=== PATIENT | female | born 1960 | race Caucasian/White ===

== ENCOUNTER 2019-01-14 07:19 | Day surgery (SDC) | payer BC ==
[~2019-01-14 07:19] MED LIST: Lactated Ringers 1,000 ML IV SCH; Lidocaine 1%/Sod Bicarbonate in NS 8.4% 1 ML Syringe IDERM PRN; Sodium Chloride 0.9% 10 ML Syringe FLUSH PRN
[2019-01-14] MEDS ORDERED: Lidocaine 1% 4 ML ONE (07:45)
[2019-01-14] MEDS ORDERED: Propofol 200 MG/20 ML SDV ONE (07:46)
[2019-01-14] MEDS ORDERED: Midazolam 1 MG/ML 2 ML SDV ONE (07:46)
[2019-01-14] MEDS ORDERED: fentaNYL 100 MCG/2 ML SDV ONE (07:46)
[2019-01-14] MEDS ORDERED: Ondansetron 4 MG/2 ML SDV ONE (07:48)
--- NOTE | 2019-01-14 08:48 | PCM.PREANE ---
Preanesthetic Assessment - Procedure Proposed Procedure: D and C- hysteroscopy polypectomy - Anesthesia/Transfusion/Family Hx Anesthesia History: Prior Anesthesia Without Reaction Family History of Anesthesia Reaction: No Transfusion History: No Prior Transfusion(s) - Review of Systems General: No Symptoms Pulmonary: No Symptoms Cardiovascular: No Symptoms Gastrointestinal: No Symptoms Neurological: No Symptoms Other: Reports: None - Physical Assessment NPO Status Date: 01/13/19 NPO Status Time: 21:30 (sip of water at 2330) Vital Signs: Last Vital Signs Temp 98.4 F 01/14/19 07:55 Pulse 72 01/14/19 07:55 Resp 16 01/14/19 07:55 BP 134/60 01/14/19 07:55 Pulse Ox 99 01/14/19 07:55 Height: 5 ft 9 in Weight: 70.4 kg ASA Class: 1 Mental Status: Alert & Oriented x3 Airway Class: Mallampati = 1 Dentition: Reports: Normal Dentition (caps- not loose) Thyro-Mental Finger Breadths: 3 Mouth Opening Finger Breadths: 3 ROM/Head Extension: Full Lungs: Clear to Auscultation, Normal Respiratory Effort Cardiovascular: Regular Rate, Regular Rhythm - Lab Values: Laboratory Last Values Urine HCG, Qual Negative (NEGATIVE) 01/14/19 07:34 - Allergies Allergies/Adverse Reactions: Allergies Allergy/AdvReac Type Severity Reaction Status Date / Time codeine Allergy Nausea and Verified 01/14/19 07:51 Vomiting sulfamethoxazole Allergy Rash Verified 01/14/19 07:51 [From Bactrim] trimethoprim [From Bactrim] Allergy Rash Verified 01/14/19 07:51 - Blood Blood Available: No - Acknowledgements Anesthesia Type Planned: General Anesthesia Pt an Appropriate Candidate for the Planned Anesthesia: Yes Alternatives and Risks of Anesthesia Discussed w Pt/Guardian: Yes Pt/Guardian Understands and Agrees with Anesthesia Plan: Yes PreAnesthesia Questionnaire HEENT History: Reports: Other (See Below) (implantable lenses in eyes) Cardiovascular History: Reports: None Respiratory History: Reports: None Gastrointestinal History: Reports: Other (See Below) Other Gastrointestinal History: anal fissure Genitourinary History: Reports: Other (See Below) Other Genitourinary History: abnormail uterine bleeding, bacterial vaginosis, breast mass bilateral, irregular mense, vaginitis, enlarged uterus, vulvovaginitis, vaginal ituching 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) Other OB/BYN History: menorrhagia, right ovarian mass, perimenopausal, Musculoskeletal History: Reports: None Neurological History: Reports: None Psychiatric History: Reports: None Endocrine/Metabolic History: Reports: Other (See Below) Other Endocrine/Metabolic History: thyroid nodule Hematologic History: Reports: None Immunologic History: Reports: None Oncologic (Cancer) History: Reports: None Dermatologic History: Reports: Other (See Below) Other Dermatologic History: cold intolerance - Past Surgical History Head Surgeries/Procedures: Reports: None HEENT Surgical History: Reports: Eye Surgery, Tonsillectomy Respiratory Surgical History: Reports: None GI Surgical History: Reports: Appendectomy, Colonoscopy Female Surgical History: Reports: Breast Biopsy Male Surgical History: Reports: None Endocrine Surgical History: Reports: None Neurological Surgical History: Reports: None Musculoskeletal Surgical History: Reports: None Oncologic Surgical History: Reports: None - SUBSTANCE USE Smoking Status *Q: Never Smoker Tobacco Use Within Last Twelve Months: No Second Hand Smoke Exposure: No Days Per Week of Alcohol Use: 0 Recreational Drug Use History: No - HOME MEDS Home Medications: Home Meds Estradiol [Estrace] 1 dose VAG ASDIRECTED 01/12/19 [History] - CURRENT (IN HOUSE) MEDS Current Meds: Current Medications Lactated Ringer's (Ringers, Lactated) 1,000 mls @ 125 mls/hr IV ASDIRECTED CUCA Stop: 01/17/19 23:00 Last Admin: 01/14/19 07:54 Dose: 125 mls/hr Lidocaine/Sodium Bicarbonate (Buffered Lidocaine 1% In Ns 8.4%) 0.25 ml IDERM ONETIME PRN PRN Reason: Prior to IV Start Stop: 01/17/19 18:00 Last Admin: 01/14/19 07:54 Dose: 0.25 ml Sodium Chloride (Saline Flush) 10 ml FLUSH ASDIRECTED PRN PRN Reason: Keep Vein Open Stop: 01/17/19 18:00 Discontinued Medications Fentanyl (Sublimaze) Confirm Administered Dose 100 mcg .ROUTE .STK-MED ONE Stop: 01/14/19 07:47 Lidocaine HCl (Xylocaine-Mpf 1%) Confirm Administered Dose 4 mls @ as directed .ROUTE .STK-MED ONE Stop: 01/14/19 07:46 Midazolam HCl (Versed 1 Mg/Ml) Confirm Administered Dose 2 mg .ROUTE .STK-MED ONE Stop: 01/14/19 07:47 Ondansetron HCl (Zofran) Confirm Administered Dose 4 mg .ROUTE .STK-MED ONE Stop: 01/14/19 07:49 Propofol (Diprivan 20 Ml) Confirm Administered Dose 200 mg .ROUTE .STK-MED ONE Stop: 01/14/19 07:47
[2019-01-14] MEDS ORDERED: Ketorolac 30 MG/ML SDV ONE (09:07)
[2019-01-14] MEDS ORDERED: Dexamethasone 4 MG/ML 5 ML MDV ONE (09:18)
[2019-01-14] MEDS ORDERED: ePHEDrine/Normal Saline 25 MG/5 ML Syringe ONE (09:23)
[2019-01-14] MEDS ORDERED: Lactated Ringers 1,000 ML ONE (09:34)
--- NOTE | 2019-01-14 10:05 | PCM.POSTAN ---
POST ANESTHESIA ASSESSMENT - MENTAL STATUS Mental Status: Somnolent - VITAL SIGNS Vital Signs: Last Vital Signs Temp 97.9 F 01/14/19 10:00 Pulse 71 01/14/19 10:00 Resp 15 01/14/19 10:00 BP 108/57 L 01/14/19 10:00 Pulse Ox 97 01/14/19 10:00 - RESPIRATORY Respiratory Status: Respiratory Rate WNL, Airway Patent - CARDIOVASCULAR CV Status: Pulse Rate WNL, Blood Pressure Stable - GASTROINTESTINAL GI Status: No Symptoms - PAIN Pain Score: 0 - POST OP HYDRATION Hydration Status: Adequate & Stable
--- NOTE | 2019-01-14 10:08 | PCM.OPNOTE ---
- General Post-Op/Procedure Note Date of Surgery/Procedure: 01/14/19 Operative Procedure(s): Hysteroscopy with dilation and curettage Findings: Anterior uterine wall sessile polyp measuring approximately 2-3 mm. Normal- appearing ostia bilaterally. Small septated uterine cavity. Right uterine cavity with additional pocket of outpouching of the uterine cavity near the ostia. Grossly normal-appearing cervix. Uterus somewhat enlarged to approximately 8-9 cm in diameter on abdominal exam Anteverted uterus. Several fibroids able to be palpated on exam. Likely able to perform vaginal hysterectomy if needed. Pre Op Diagnosis: Abnormal uterine bleeding with endometrial polyp seen on ultrasound Post-Op Diagnosis: Same Anesthesia Technique: General LMA Primary Surgeon: Milton Julian Anesthesia Provider: Ree Gagnon Devulcanizer Tender: Jimena Butts ([place] student) Reason Devulcanizer Tender Was Necessary: Education Role of Devulcanizer Tender: Watched procedure for educational purposes Pathology: Endometrial curettings Fluid Replacement, Intraop: 1,400 Output, Urine Amount: 0 (Voided prior to procedure) EBL in mLs: 10 Complications: None Condition: Good Free Text/Narrative:: Procedure in Detail: Patient was seen in the preop area and counseled on risks, benefits and alternatives of the procedure and consents were reviewed prior to going back to the OR. She desired to proceed with hysteroscopy, dilation and curettage and polypectomy. She was taken back to OR #2 and given general anesthesia with laryngeal mask airway that was placed without difficulty. She was placed in dorsal lithotomy position using Yellofin stirrups. She was prepped and draped in a normal sterile fashion. A weighted was placed in the vagina and the cervix was visualized. The anterior lip of the cervix was grasped with a single toothed tenaculum. The cervix was serially dilated to a 6 Maori Hegar dilator. A 5 mm hysteroscope was inserted into the uterine cavity and advanced to the uterine fundus. The ostia were noted to be present bilaterally. The uterine cavity was noted to be overall normal in appearance with a sessile endometrial polyp measuring 3-4 mm on the anterior uterine wall. No thickening of the endometrium noted. There was an outpouching of the uterine cavity near the right fallopian tube ostia. The hysteroscope was removed and a sharp curette was used to circumferentially curette the entirety of the uterine cavity where good cri was present in all directions. The curettings were sent for pathology. The hysteroscope was reinserted and the anterior wall polyp was removed. There was no polypoid remnants visualized on exam. The procedure was complete at this time and the tenaculum was removed from the cervix and good hemostasis was noted from the tenaculum sites. All instruments were removed from the vagina. All needle and sponge counts were correct x 2. The patient was awoken and taken back to the recovery room in stable condition. The patient will be discharged home when she is ambulating, tolerating PO, pain is well controlled with PO medications and she is voiding normally. She will follow up with Dr. Julian in the clinic within the next 2-3 weeks. She was given strict precautions to call the medical office or go to the Emergency Department if she is having severe vaginal bleeding of more than 1 pad per hour for three hours, uncontrollable pain, nausea, vomiting, or if she is having a fever greater than 100.4 F. Hysteroscopy fluid in: 900 mL Hysteroscopy fluid out: 800 mL Review of images IMG 001: Left fallopian tube ostia grossly normal in appearance IMG 002: Opening for the right ostia and outpouching of the uterine cavity IMG 003: Additional review of the ostia opening and outpouching somewhat obscured by endometrial tissue IMG 004: Right fallopian tube ostia IMG 005: Anterior uterine wall sessile endometrial polyp measuring 3-4 mm IMG 006: Endometrial cavity after curettage
--- NOTE | 2019-01-14 12:01 | PCM48HPAN ---
Post Anesthesia Note - EVALUATION WITHIN 48HRS OF ANESTHETIC Vital Signs in Normal Range: Yes Patient Participated in Evaluation: Yes Respiratory Function Stable: Yes Airway Patent: Yes Cardiovascular Function Stable: Yes Hydration Status Stable: Yes Pain Control Satisfactory: Yes Nausea and Vomiting Control Satisfactory: Yes Mental Status Recovered: Yes Vital Signs: Last Vital Signs Temp 97.9 F 01/14/19 10:40 Pulse 71 01/14/19 10:40 Resp 15 01/14/19 10:40 BP 132/76 01/14/19 10:40 Pulse Ox 97 01/14/19 10:40
== END 2019-01-14 11:03 | disposition home or self-care (01) ==
LOC: JD.SDS 07:19
PROVIDERS: ATTEND Obstetrics & Gynecology
DX: N84.0 Polyp of corpus uteri (principal); D25.9 Leiomyoma of uterus, unspecified; M47.812 Spondylosis without myelopathy or radiculopathy, cervical region; Z88.5 Allergy status to narcotic agent; Z88.2 Allergy status to sulfonamides; Z88.8 Allergy status to other drugs, medicaments and biological substances
CPT/HCPCS: 58558; 81025; J1100; J1885; J2001; J2250; J2405; J2704; J3010; J7050; J7120; 00952

== ENCOUNTER 2019-10-18 09:03 | Day surgery (SDC) | payer OTHER ==
[2019-10-18] MEDS ORDERED: Sodium Chloride 0.9% 50 ML SDV ONE (09:17)
--- NOTE | 2019-10-18 10:19 | PCM.PREANE ---
Preanesthetic Assessment - Procedure Proposed Procedure: Laparoscopic Assisted Vaginal Hysterectomy - Anesthesia/Transfusion/Family Hx Anesthesia History: Prior Anesthesia Without Reaction Family History of Anesthesia Reaction: No Transfusion History: No Prior Transfusion(s) - Review of Systems General: Fatigue Pulmonary: No Symptoms Cardiovascular: No Symptoms Gastrointestinal: No Symptoms Neurological: Headache (this morning, no coffee, believes caffine related. ) Other: Reports: None - Physical Assessment NPO Status Date: 10/17/19 NPO Status Time: 22:00 Vital Signs: Last Vital Signs Temp 36.3 C 10/18/19 09:10 Pulse 71 10/18/19 09:10 Resp 16 10/18/19 09:10 BP 134/69 10/18/19 09:10 Pulse Ox 100 10/18/19 09:10 Height: 1.75 m Weight: 71.214 kg ASA Class: 2 Mental Status: Alert & Oriented x3 Airway Class: Mallampati = 2 Dentition: Reports: Normal Dentition Thyro-Mental Finger Breadths: 2 Mouth Opening Finger Breadths: 3 ROM/Head Extension: Full Lungs: Clear to Auscultation, Normal Respiratory Effort Cardiovascular: Regular Rate, Regular Rhythm - Allergies Allergies/Adverse Reactions: Allergies Allergy/AdvReac Type Severity Reaction Status Date / Time codeine Allergy Nausea and Verified 10/17/19 16:06 Vomiting sulfamethoxazole Allergy Rash Verified 10/17/19 16:06 [From Bactrim] trimethoprim [From Bactrim] Allergy Rash Verified 10/17/19 16:06 - Acknowledgements Anesthesia Type Planned: General Anesthesia Pt an Appropriate Candidate for the Planned Anesthesia: Yes Alternatives and Risks of Anesthesia Discussed w Pt/Guardian: Yes Pt/Guardian Understands and Agrees with Anesthesia Plan: Yes PreAnesthesia Questionnaire HEENT History: Reports: Other (See Below) Other HEENT History: bilateral eye surgery with lenses Cardiovascular History: Reports: None Respiratory History: Reports: None Gastrointestinal History: Reports: Other (See Below) Other Gastrointestinal History: anal fissure Genitourinary History: Reports: Other (See Below) Other Genitourinary History: abnormail uterine bleeding, bacterial vaginosis, breast mass bilateral, irregular mense, vaginitis, enlarged uterus, vulvovaginitis, vaginal ituching 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 (See Below) Other OB/BYN History: menorrhagia, right ovarian mass, perimenopausal, , abnormal uterine bleeding, bilateral breast mass with tracer wire intact, enlarge uterus, irregular menses, vaginal atrophy/discharge, vaginit is/vulvovaginitis, perimenopausal Musculoskeletal History: Reports: None Neurological History: Reports: Migraines Psychiatric History: Reports: None Endocrine/Metabolic History: Reports: Other (See Below) Other Endocrine/Metabolic History: thyroid nodule Hematologic History: Reports: None Immunologic History: Reports: None Oncologic (Cancer) History: Reports: None Dermatologic History: Reports: Other (See Below) Other Dermatologic History: cold intolerance - Infectious Disease History Infectious Disease History: Reports: None - Past Surgical History Head Surgeries/Procedures: Reports: None HEENT Surgical History: Reports: Adenoidectomy, Eye Surgery, Tonsillectomy Cardiovascular Surgical History: Reports: None Respiratory Surgical History: Reports: None GI Surgical History: Reports: Appendectomy, Colonoscopy Female Surgical History: Reports: Breast Biopsy Male Surgical History: Reports: None Endocrine Surgical History: Reports: None Neurological Surgical History: Reports: None Musculoskeletal Surgical History: Reports: None Oncologic Surgical History: Reports: None - SUBSTANCE USE Smoking Status *Q: Never Smoker Recreational Drug Use History: No - HOME MEDS Home Medications: Home Meds Calcium Carbonate [Calcium] 600 mg PO DAILY 10/17/19 [History] Folic Acid 0.8 mg PO DAILY 10/17/19 [History] Multivitamin 1 tab PO DAILY 10/17/19 [History] Norethindrone [Aygestin] 5 mg PO TID 10/17/19 [History] - CURRENT (IN HOUSE) MEDS Current Meds: Current Medications Lactated Ringer's (Ringers, Lactated) 1,000 mls @ 125 mls/hr IV ASDIRECTED CUCA Stop: 10/18/19 23:00 Last Admin: 10/18/19 09:20 Dose: 125 mls/hr Documented by: Lidocaine/Sodium Bicarbonate (Buffered Lidocaine 1% In Ns 8.4%) 0.25 ml IDERM ONETIME PRN PRN Reason: Prior to IV Start Stop: 10/18/19 18:00 Last Admin: 10/18/19 09:20 Dose: 0.25 ml Documented by: Sodium Chloride (Saline Flush) 10 ml FLUSH ASDIRECTED PRN PRN Reason: Keep Vein Open Stop: 10/18/19 18:00 Discontinued Medications Bupivacaine HCl (Marcaine 0.5%) Confirm Administered Dose 30 ml .ROUTE .STK-MED ONE Stop: 10/18/19 09:18 Lidocaine/Epinephrine (Xylocaine 1% With Epinephrine 1:100,000) Confirm Administered Dose 20 ml .ROUTE .STK-MED ONE Stop: 10/18/19 09:18 Sodium Chloride (Normal Saline) Confirm Administered Dose 50 ml .ROUTE .STNextDocs-MED ONE Stop: 10/18/19 09:18
[2019-10-18] MEDS ORDERED: fentaNYL 250 MCG/5 ML SDV ONE (10:23)
[2019-10-18] MEDS ORDERED: Lactated Ringers 1,000 ML ONE ×3 (10:23→13:01)
[2019-10-18] MEDS ORDERED: Midazolam 1 MG/ML 2 ML SDV ONE (10:23)
[2019-10-18] MEDS ORDERED: Rocuronium 50 MG/5 ML Vial ONE (10:23)
[2019-10-18] MEDS ORDERED: Lidocaine 1% 4 ML ONE ×2 (10:23)
[2019-10-18] MEDS ORDERED: ceFAZolin 1 GM Vial ONE (10:23)
[2019-10-18] MEDS ORDERED: Propofol 200 MG/20 ML SDV ONE (10:23)
[2019-10-18] MEDS ORDERED: HYDROmorphone 0.5 MG/0.5 ML Syringe ONE ×2 (11:15)
[2019-10-18] MEDS: Bupivacaine 0.5% 30 ML SDV ONE ×2 (11:21→12:02)
[2019-10-18] MEDS ORDERED: ePHEDrine Sulfate/0.9% NaCl/Pf 25 MG/5 ML SYRINGE IV ONE (11:26)
[2019-10-18] MEDS ORDERED: Dexamethasone 4 MG/ML 5 ML MDV ONE (11:56)
[2019-10-18] MEDS: Lidocaine 1% with EPINEPHrine 1:100,000 20 ML MDV ONE ×2 (12:00→12:02)
[2019-10-18] MEDS ORDERED: Ketorolac 30 MG/ML SDV ONE (12:17)
[2019-10-18] MEDS ORDERED: Ondansetron 4 MG/2 ML SDV ONE (12:18)
--- NOTE | 2019-10-18 13:19 | PCM.POSTAN ---
POST ANESTHESIA ASSESSMENT - MENTAL STATUS Mental Status: Alert, Oriented - VITAL SIGNS Vital Signs: Last Vital Signs Temp 36.3 C 10/18/19 09:10 Pulse 71 10/18/19 09:10 Resp 16 10/18/19 09:10 BP 134/69 10/18/19 09:10 Pulse Ox 100 10/18/19 09:10 - RESPIRATORY Respiratory Status: Respiratory Rate WNL, Airway Patent, O2 Saturation Stable - CARDIOVASCULAR CV Status: Pulse Rate WNL, Blood Pressure Stable - GASTROINTESTINAL GI Status: No Symptoms - PAIN Pain Score: 0 - POST OP HYDRATION Hydration Status: Adequate & Stable - OBSERVATIONS Free Text/Narrative:: no anesthesia complications noted
[2019-10-18] MEDS ORDERED: fentaNYL 100 MCG/2 ML SDV IVPUSH PRN (13:41)
--- NOTE | 2019-10-18 13:44 | PCM.OPNOTE ---
- General Post-Op/Procedure Note Date of Surgery/Procedure: 10/18/19 Operative Procedure(s): Laparoscopic-assisted vaginal hysterectomy with bilateral salpingectomy and morcellation by removing a central core portion of the uterus for removal Findings: Grossly normal-appearing uterus, tubes and ovaries bilaterally. Uterus was enlarged with suspected multiple fibroids present causing enlargement of the uterus. Uterus was enlarged to a 10 to 12 weeks size. Grossly normal-appearing visualized portions of the intestines, liver and stomach. Pre Op Diagnosis: Abnormal uterine bleeding with postmenopausal bleeding and uterine fibroids Post-Op Diagnosis: Same Anesthesia Technique: General ET Tube Primary Surgeon: Milton Julian Anesthesia Provider: Reinier Weiss Live Truck Operator: Alexander Wheeler Live Truck Operator: Afua Kruse ([place] student) Reason Live Truck Operator Was Necessary: Patient safety and reduction of morbidity and mortality Role of Live Truck Operator: Use of laparoscopic instruments during the case to complete the case as well as retraction for visualization Pathology: Uterus and bilateral fallopian tubes Fluid Replacement, Intraop: 2,000 Output, Urine Amount: 75 EBL in mLs: 135 Complications: None Condition: Good Free Text/Narrative:: The patient was seen in the preoperative holding area and risks, benefits, indications, and alternatives of the procedure were reviewed with the patient and she desired to proceed with a laparoscopic assisted vaginal hysterectomy, bilateral salpingectomy, possible unilateral or bilateral salpingo-oophorectomy and possible total abdominal hysterectomy. Consents were reviewed. The patient was taken back to the OR and given general anesthesia with an endotracheal tube which was placed without difficulty. She was placed in dorsal lithotomy position using Yellofin stirrups. She was prepped and draped in normal sterile fashion. The anterior lip of the cervix was grasped with a single-tooth tenaculum and a uterine sound was used to find the appropriate length for the uterine manipulator tip. The uterus sounded at 11 cm and a Eduarda uterine cooper pulator was placed with a 10 cm tip. A Chakraborty catheter was placed without difficulty. Attention was then turned to her umbilicus and it was injected with 0.5% Marcaine and a 5 mm stab incision was made with a scalpel and a Veress needle was then inserted through the incision. The gas was turned on, with an opening pressure of 3 mmHg. Pneumoperitoneum was continued until 15 mmHg pressure. A 5 mm trocar was then inserted under direct visualization through the incision without difficulty. Attention was then turned to the patient's right lower quadrant where an avascular space near the ASIS was identified. Local anesthetic was injected and a 5 mm incision was made with a scalpel. A 5 mm trocar was then inserted under direct visualization of the laparoscope. Attention was then turned to the left lower quadrant, where again an avascular portion of the abdominal wall was identified near the ASIS. Local anesthetic was injected and a scalpel was used to make a 5 mm incision. A 5 mm trocar was inserted under direct visualization with the laparoscope. Attention was then turned to the pelvis where the uterus was visualized and noted be normal in appearance but enlarged suspected to be due to several fibroids present with normal appearing bilateral fallopian tubes and normal-appearing bilateral ovaries. The atraumatic grasper was then removed from the right lower trocar and a Enseal vessel sealing device was introduced and was used to transect the right fallopian tube and round ligament. The mesosalpinx connecting the right fallopian tube was transected from the ovary and underlying tissue. The right round ligament was then transected using the Enseal vessel sealing device. The utero-ovarian ligament was then transected using the Enseal vessel sealing device. The right side of the uterus and broad ligament were then transected using the Enseal vessel sealing device until the level of the uterovesical peritoneal reflection. A bladder flap was then created using the Enseal vessel sealing device. This was repeated on the patient's left side. The fallopian tube was transected from the mesosalpinx using the Enseal vessel sealing device. The utero-ovarian ligament was then transected using Enseal vessel sealing device. The left round ligament was transected using Enseal vessel sealing device and the broad ligament was transected to the level of the bladder flap t hat had been previously created. The bladder flap was further developed. The pelvis was then inspected for hemostasis at this time and hemostasis was noted. All instruments were removed from the abdomen. Attention was then turned to the patient's perineum where a weighted speculum was placed into the vagina and a Otf retractor was used to visualize the cervix. The cervix was grasped with a double-tooth tenaculum. The cervical reflection point was then injected circumferentially with 0.25% lidocaine with epinephrine. The cervix was then circumferentially incised with a scalpel. The bladder was then dissected off the pubovesical cervical fascia anteriorly with Metzenbaum scissors. The same procedure was performed posteriorly and the posterior cul-de-sac was entered sharply without difficulty using Metzenbaum scissors. The anterior cul-de-sac was able to be entered sharply after posterior entry using Metzenbaum scissors. At this point, an Enseal vessel sealing device was placed over the uterosacral ligaments on the patient's left side. These were cauterized and ligated with the device. The uterine artery on the patient's left side was clamped, cauterized and ligated using the Enseal vessel sealing device. This was repeated on the patient's right side. Hemostasis was assured. The cardinal ligaments were then clamped on both sides using the Enseal vessel sealing device, cauterized and transected with the device. The uterine artery on the patient's right side side and the remainder of the broad ligament were then serially clamped with the Enseal vessel sealing device, cauterized and transected with the device. Excellent hemostasis was noted. The cervix and uterus was attempted to be delivered at this time but was unable without removing a central core section of the uterus using a scalpel. After the central core portion of the cervix and uterus was removed with the entirety of the uterine fundus was able to be delivered. The posterior vaginal cuff was closed with running locked sutures of 0 Monocryl. The vaginal cuff was then closed in a horizontal fashion using running locked sutures with 0 Monocryl suture. All instruments were removed from the vagina. Attention was then turned to the abdomen where a laparoscope was inserted and was used to check for hemostasis. Hemostasis was noted at this time. The case was complete at this time. The gas w as then evacuated from the peritoneum and trocars removed. These were closed using 4-0 Monocryl suture and Dermabond. The patient was awoken from general anesthesia and taken to the PACU for recover y in stable condition. She will be discharged to home once she is able to meet all postoperative milestones including tolerating small amount of oral intake and liquids, ambulate without difficulty, her pain controlled with oral medications and able to void without difficulty. She will follow-up in the clinic in 2 weeks or earlier as needed. Sponge, lap, needle, and instrument counts were correct x 2. Review of images from the case IMG 001: Right lobe of the liver and visualized portion of the colon as well as small visualized portion of the gallbladder that appeared normal in appearance. IMG 002: Left lobe of the liver and stomach with normal appearance IMG 003: Right fallopian tube and small portion of the ovary grossly normal in appearance. IMG 004: Left fallopian tube and ovary grossly normal in appearance with small portion of the uterine fundus visualized IMG 005: Enlarged uterus with suspected fibroids present in the right and left portion of the uterine fundus IMG 006: Left pelvic sidewall with hemostasis and grossly normal-appearing left ovary IMG 007: Right pelvic sidewall and ovary with hemostasis noted IMG 008: Vaginal cuff with hemostasis noted after completion of the case IMG 009: Right lower quadrant trocar site with hemostasis noted IMG 010: Left lower quadrant trocar site with hemostasis noted Milton Julian MD 1:44 PM 10/18/2019
--- NOTE | 2019-10-18 14:41 | PCM48HPAN ---
Post Anesthesia Note - EVALUATION WITHIN 48HRS OF ANESTHETIC Vital Signs in Normal Range: Yes Patient Participated in Evaluation: Yes Respiratory Function Stable: Yes Airway Patent: Yes Cardiovascular Function Stable: Yes Hydration Status Stable: Yes Pain Control Satisfactory: Yes Nausea and Vomiting Control Satisfactory: Yes Mental Status Recovered: Yes Vital Signs: Last Vital Signs Temp 37.4 C 10/18/19 14:10 Pulse 68 10/18/19 14:10 Resp 15 10/18/19 14:10 BP 118/70 10/18/19 14:10 Pulse Ox 94 L 10/18/19 14:10
[2019-10-18] MEDS ORDERED: Haloperidol Lactate 5 MG/ML SDV IVPUSH ONE (14:59)
== END 2019-10-18 16:05 | disposition home or self-care (01) ==
LOC: JD.SDS 09:03
PROVIDERS: ATTEND Obstetrics & Gynecology
DX: D25.1 Intramural leiomyoma of uterus (principal); N88.8 Other specified noninflammatory disorders of cervix uteri; N72 Inflammatory disease of cervix uteri; D26.9 Other benign neoplasm of uterus, unspecified; Z88.5 Allergy status to narcotic agent; Z88.8 Allergy status to other drugs, medicaments and biological substances; Z79.899 Other long term (current) drug therapy; Z88.2 Allergy status to sulfonamides
CPT/HCPCS: 58552; 81003; J0171; J0690; J1100; J1170; J1630; J1885; J2001; J2250; J2405; J2704; J3010; J3490; J7120; 00944

== ENCOUNTER 2024-01-27 10:05 | Emergency (ER) | payer BC ==
[2024-01-27] MEDS ORDERED: Sodium Chloride 0.9% 10 ML Syringe FLUSH PRN ×2 (10:37→10:38)
[2024-01-27 11:09] LABS: BASOPHILS PERCENT AUTO 0.6 % (0.0-1.0); EOSINOPHILS ABSOLUTE AUTO 0.1 K/mm3 (0.0-0.4); EOSINOPHILS PERCENT AUTO 1.1 % (0.0-6.0); HEMATOCRIT 42.8 % (37.0-47.0); HEMOGLOBIN 14.1 gm/dl (12.0-16.0); IMMATURE GRAN ABSOLUTE AUTO 0.01 K/mm3 (0.00-0.05); IMMATURE GRAN PERCENT AUTO 0.2 % (0.0-0.4); LYMPHOCYTES ABSOLUTE AUTO 1.5 K/mm3 (1.0-4.8); LYMPHOCYTES PERCENT AUTO 29.3 % (24.0-44.0); MEAN CORPUSCULAR HEMOGLOBIN 29.6 pg (28.0-32.0); MEAN CORPUSCULAR HGB CONC 32.9 g/dl (32.0-36.0); MEAN CORPUSCULAR VOLUME 89.7 fl (83.0-99.0); MEAN PLATELET VOLUME 10.1 fl (9.4-12.3); MONOCYTES ABSOLUTE AUTO 0.4 K/mm3 (0.0-0.8); MONOCYTES PERCENT AUTO 7.6 % (0.0-8.0); NEUTROPHILS ABSOLUTE AUTO 3.2 K/mm3 (1.8-7.7); NEUTROPHILS PERCENT AUTO 61.2 % (41.0-71.0); PLATELET COUNT,PLT 231 K/mm3 (150-400); RED BLOOD CELL COUNT 4.77 M/mm3 (4.10-5.30); WHITE BLOOD CELL COUNT,WBC 5.23 K/mm3 (3.9-11.3)
[2024-01-27 11:11] LABS: APPEARANCE,URINE CLEAR (Clear); BILIRUBIN,URINE NEGATIVE (Negative); COLOR,URINE YELLOW (Yellow); GLUCOSE,URINE NEGATIVE (Negative); KETONES,URINE NEGATIVE (Negative); LEUKOCYTE ESTERASE,URINE NEGATIVE (Negative); NITRITE,URINE NEGATIVE (Negative); OCCULT BLOOD,URINE TRACE-INTACT (Negative); PROTEIN,URINE NEGATIVE (Negative); UROBILINOGEN,URINE 0.2 (0.2-1.0)
[2024-01-27 11:17] LABS: RBC,URINE 0-5 /hpf (0-5)
[2024-01-27 11:18] LABS: BACTERIA,URINE OCCASIONAL /hpf (FEW); MUCUS,URINE FEW /hpf (FEW); SQUAMOUS EPITHELIAL CELLS,UR 0-5 /hpf (0-5); WBC,URINE 0-5 /hpf (0-5)
[2024-01-27 11:26] LABS: INR 0.97; PROTHROMBIN TIME 10.3 SECONDS (9.7-12.0)
[2024-01-27 11:27] LABS: PTT,PARTIAL THROMBOPLSTIN TIME 24.9 SECONDS (21.7-31.4)
[2024-01-27 11:44] LABS: A/G RATIO 1.4 (1-2); ALBUMIN 3.8 g/dl (3.4-5.0); BILIRUBIN TOTAL 0.3 mg/dL (0.2-1.0); BUN/CREATININE RATIO 21.7 (14-18); CALCIUM 9.3 mg/dL (8.5-10.1); CREATININE 0.6 mg/dL (0.55-1.02); EST CRCL DRUG DOSING (CG) 100.3 mL/min; MAGNESIUM 2.1 mg/dL (1.8-2.4); PROTEIN TOTAL,TP 6.6 g/dl (6.4-8.2)
[2024-01-27 12:18] LABS: TSH 2.224 uIU/mL (0.358-3.74)
== END 2024-01-27 12:58 | disposition home or self-care (01) ==
LOC: JD.ED 10:05
DX: R51.9 Headache, unspecified (principal); Z88.5 Allergy status to narcotic agent; Z88.2 Allergy status to sulfonamides; Z88.8 Allergy status to other drugs, medicaments and biological substances
CPT/HCPCS: 36415; 70450; 70450-26; 80053; 81001; 82947; 83735; 84443; 85025; 85610; 85730; 93005; 99285

== ENCOUNTER 2025-01-10 07:40 | Day surgery (SDC) | payer BC ==
[~2025-01-10 07:40] MED LIST changes: -Lactated Ringers 1,000 ML IV SCH; -Lidocaine 1%/Sod Bicarbonate in NS 8.4% 1 ML Syringe IDERM PRN
[2025-01-10] MEDS: Lactated Ringers 1,000 ML IV SCH (07:55)
[2025-01-10] MEDS ORDERED: Propofol 200 MG/20 ML SDV ONE ×2 (08:01→08:16)
[2025-01-10] MEDS ORDERED: Sodium Chloride 0.9% 10 ML Syringe FLUSH SCH (09:00)
== END 2025-01-10 09:10 | disposition home or self-care (01) ==
LOC: JD.SDS 07:40
PROVIDERS: ATTEND Surgery
DX: Z12.11 Encounter for screening for malignant neoplasm of colon (principal); D12.0 Benign neoplasm of cecum; K57.30 Diverticulosis of large intestine without perforation or abscess without bleeding; I10 Essential (primary) hypertension; Z88.2 Allergy status to sulfonamides; Z88.8 Allergy status to other drugs, medicaments and biological substances; Z79.899 Other long term (current) drug therapy; Z86.0101 Personal history of adenomatous and serrated colon polyps
CPT/HCPCS: 45385; J2704; J7120; 00811